=== PATIENT | male | born 1965 | race African-American/Black ===

== ENCOUNTER 2018-12-31 01:19 | Emergency (ER) | payer MEDICAID ==
[~2018-12-31] VITALS: Ht 172.7 cm; Wt 66.8 kg
[2018-12-31 01:45] VITALS: BP 120/69
[2018-12-31] MEDS ORDERED: QUET400T PO (01:55)
[2018-12-31] MEDS ORDERED: DIVA500T3 PO (01:56)
[2018-12-31] MEDS ORDERED: BENZ1TAB7 GT (01:57)
[2018-12-31] MEDS ORDERED: ALPR2TAB2 PO (01:58)
== END 2018-12-31 05:00 | disposition left against medical advice (07) ==
LOC: ER 01:19
DX: Z53.21 Procedure and treatment not carried out due to patient leaving prior to being seen by health care provider (principal); F17.200 Nicotine dependence, unspecified, uncomplicated